=== PATIENT | male | born 1960 | race Caucasian/White ===

== ENCOUNTER 2017-04-11 06:07 | Day surgery (SDC) | payer OTHER ==
[~2017-04-11] VITALS: Ht 182.9 cm; Wt 69.0 kg
[~2017-04-11 06:07] MED LIST: ALPR-475 PO; CIPR500T87 PO; PRED20TA PO; [UNRECOGNIZED DRUG - OTHER] PO
[2017-04-11 06:12] VITALS: BP 109/71
[2017-04-11] MEDS ORDERED: LACTATED RINGERS 1,000 ML IV SCH (06:21)
[2017-04-11] MEDS ORDERED: ETHYL ALCOHOL 98%, 5 ML ONE (06:32)
[2017-04-11] MEDS ORDERED: BUPIVACAINE/PF 0.5% ONE (06:37)
[2017-04-11] MEDS ORDERED: MIDAZOLAM 1 MG/ML, 2ML ONE (06:45)
[2017-04-11] MEDS ORDERED: FENTANYL PF 100 MCG/2ML ONE (06:45)
[2017-04-11] MEDS ORDERED: ONDANSETRON 2MG/ML, 2ML ONE (06:56)
[2017-04-11] MEDS ORDERED: KETOROLAC 30 MG/1 ML ONE (06:56)
[2017-04-11] MEDS ORDERED: DEXAMETHASONE 4 MG/ML, 1ML ONE (06:56)
[2017-04-11] MEDS ORDERED: OMNIPAQUE 180 MG/ML, 20ML VIAL IT ONE (07:15)
[2017-04-11] MEDS ORDERED: HYDROcodone/APAP 7.5-325MG/15ML UDC PO PRN (07:30)
[2017-04-11] MEDS ORDERED: METOPROLOL 1 MG/ML, 5ML IV PRN (07:30)
[2017-04-11] MEDS ORDERED: EPHEDRINE 50 MG/ML, 1ML IVPush PRN (07:30)
[2017-04-11] MEDS ORDERED: ALBUTEROL SULFATE 2.5 MG/3 ML NPPB PRN (07:30)
[2017-04-11] MEDS ORDERED: HYDROmorphone 1 MG/ML, 1ML IV PRN (07:30)
[2017-04-11] MEDS ORDERED: PROMETHAZINE 25 MG/ML, 1ML IV PRN (07:30)
[2017-04-11] MEDS ORDERED: OXYcodone 5 MG/5 ML ORAL.SOL UDC PO PRN (07:30)
[2017-04-11] MEDS ORDERED: hydrALAzine 20 MG/ML, 1ML IV PRN (07:30)
[2017-04-11] MEDS ORDERED: ACETAMINOPHEN 325 MG TABLET PO PRN (07:30)
[2017-04-11] MEDS ORDERED: MEPERIDINE/PF 25MG/0.5ML IVPush PRN (07:30)
[2017-04-11] MEDS ORDERED: LABETALOL 5MG/ML, 20ML IV PRN (07:30)
[2017-04-11] MEDS ORDERED: ONDANSETRON 2MG/ML, 2ML IVPush PRN (07:30)
[2017-04-11] MEDS ORDERED: FENTANYL PF 100 MCG/2ML IV PRN (07:30)
[2017-04-11] MEDS ORDERED: MIDAZOLAM 1 MG/ML, 2ML IV PRN (07:30)
== END 2017-04-11 09:30 | disposition home or self-care (01) ==
LOC: OUT 06:07
PROVIDERS: ATTEND Pain Medicine Interventional Pain Medicine
DX: C22.8 Malignant neoplasm of liver, primary, unspecified as to type (principal); G89.3 Neoplasm related pain (acute) (chronic); K74.60 Unspecified cirrhosis of liver
CPT/HCPCS: 36415; 64680; 72100; 76000; 85610; 85730; J1100; J1885; J2250; J2405; J3010; J3490; J7120; Q9965